=== PATIENT | female | born 1985 ===

== ENCOUNTER → 2017-12-09 09:10 | Outpatient (CLI) | payer OTHER | END | disposition home or self-care (01) | LOC: LAB 09:10 | DX: E56.8 Deficiency of other vitamins (principal) ==

== ENCOUNTER 2018-09-04 13:45 | Emergency (ER) | payer OTHER ==
[~2018-09-04] VITALS: Ht 167.6 cm; Wt 77.1 kg
== END 2018-09-04 14:59 | disposition home or self-care (01) ==
LOC: ER 13:45
DX: N30.80 Other cystitis without hematuria (principal)

== ENCOUNTER 2018-09-13 16:08 | Outpatient (CLI) | payer OTHER | END 2018-09-13 18:00 | disposition home or self-care (01) | LOC: LAB 16:08 | DX: Z34.00 Encounter for supervision of normal first pregnancy, unspecified trimester (principal) ==

== ENCOUNTER 2018-09-26 17:34 | Outpatient (CLI) | payer OTHER | END 2018-09-26 17:38 | disposition home or self-care (01) | LOC: LAB 17:34 | DX: R80.8 Other proteinuria (principal) ==

== ENCOUNTER 2018-11-07 14:06 | Outpatient (CLI) | payer OTHER | END 2018-11-07 15:42 | disposition home or self-care (01) | LOC: LAB 14:06 | DX: Z34.00 Encounter for supervision of normal first pregnancy, unspecified trimester (principal) ==

== ENCOUNTER → 2018-11-29 | Outpatient (CLI) | payer OTHER | END | disposition home or self-care (01) | LOC: SURG 09-01 10:07 → EDSTATUS 09-01 10:08 → PRENATAL 13:00 | DX: O10.012 Pre-existing essential hypertension complicating pregnancy, second trimester (principal) ==

== ENCOUNTER 2019-02-02 10:10 | Outpatient (CLI) | payer OTHER | END 2019-02-02 16:20 | disposition home or self-care (01) | LOC: LAB 10:10 | DX: Z34.00 Encounter for supervision of normal first pregnancy, unspecified trimester (principal) ==

== ENCOUNTER 2019-02-10 12:05 | Outpatient (CLI) | payer OTHER | END 2019-02-10 15:00 | disposition home or self-care (01) | LOC: LAB 12:05 | DX: O24.419 Gestational diabetes mellitus in pregnancy, unspecified control (principal) ==

== ENCOUNTER 2019-02-24 11:08 | Outpatient (CLI) | payer OTHER | END 2019-02-24 16:00 | disposition home or self-care (01) | LOC: LAB 11:08 | DX: O24.419 Gestational diabetes mellitus in pregnancy, unspecified control (principal) ==

== ENCOUNTER 2019-03-02 11:57 | Outpatient (CLI) | payer OTHER | END 2019-03-02 15:40 | disposition home or self-care (01) | LOC: LAB 11:57 | DX: Z34.00 Encounter for supervision of normal first pregnancy, unspecified trimester (principal) ==

== ENCOUNTER → 2019-03-03 | Outpatient (CLI) | payer OTHER ==
[~2019-03-03] MED LIST: LABETALOL HCL100 MG PO; PEPCID AC10 MG PO; PRENATAL TABLE1 EACH PO
== END | disposition home or self-care (01) ==
LOC: PRENATAL 11:00
DX: O10.013 Pre-existing essential hypertension complicating pregnancy, third trimester (principal); O26.843 Uterine size-date discrepancy, third trimester; O09.513 Supervision of elderly primigravida, third trimester

== ENCOUNTER 2019-03-10 11:37 | Outpatient (CLI) | payer OTHER | END 2019-03-10 15:00 | disposition home or self-care (01) | LOC: LAB 11:37 | DX: O13.9 Gestational [pregnancy-induced] hypertension without significant proteinuria, unspecified trimester (principal) ==

== ENCOUNTER 2019-03-13 12:13 | Outpatient (CLI) | payer OTHER | END 2019-03-13 15:00 | disposition home or self-care (01) | LOC: LAB 12:13 | DX: O13.9 Gestational [pregnancy-induced] hypertension without significant proteinuria, unspecified trimester (principal) ==

== ENCOUNTER 2019-03-18 10:32 | Outpatient (CLI) | payer OTHER | END 2019-03-18 10:40 | disposition home or self-care (01) | LOC: LAB 10:32 | DX: O24.419 Gestational diabetes mellitus in pregnancy, unspecified control (principal); O13.9 Gestational [pregnancy-induced] hypertension without significant proteinuria, unspecified trimester ==

== ENCOUNTER 2019-03-23 10:46 | Outpatient (CLI) | payer OTHER | END 2019-03-23 14:44 | disposition home or self-care (01) | LOC: LAB 10:46 | DX: O24.419 Gestational diabetes mellitus in pregnancy, unspecified control (principal) ==

== ENCOUNTER 2019-03-28 14:50 | Inpatient (IN) | payer OTHER ==
[~2019-03-28] VITALS: Ht 170.2 cm; Wt 2.3 kg
[2019-04-05] MEDS ORDERED: PRENATAL TABLE1 EACH PO (07:57)
[2019-04-05] MEDS ORDERED: PEPCID AC10 MG PO (08:02)
[2019-04-05] MEDS ORDERED: LABETALOL HCL100 MG PO (08:05)
== END 2019-04-08 14:00 | DRG 786 ==
LOC: O/R 04-05 06:40 → SURG-SUITE 04-05 06:40 → LDR 04-05 09:15 → OB/GYN 04-05 10:45 → SURG-SUITE 04-05 14:05
PROVIDERS: ADMIT Obstetrics & Gynecology
PROC: 4A1HXCZ Monitoring of Products of Conception, Cardiac Rate, External Approach (ICD-10-PCS; 2019-04-05)
PROC: 4A033R1 Measurement of Arterial Saturation, Peripheral, Percutaneous Approach (ICD-10-PCS; 2019-04-05)
PROC: 10D00Z1 Extraction of Products of Conception, Low, Open Approach (ICD-10-PCS; principal; 2019-04-05 09:15)
DX: O26.613 Liver and biliary tract disorders in pregnancy, third trimester (principal); K83.1 Obstruction of bile duct; O10.913 Unspecified pre-existing hypertension complicating pregnancy, third trimester; O24.410 Gestational diabetes mellitus in pregnancy, diet controlled; Z3A.37 37 weeks gestation of pregnancy; Z90.5 Acquired absence of kidney; Z37.0 Single live birth

== ENCOUNTER 2019-04-10 15:25 | Outpatient (CLI) | payer OTHER | END 2019-04-10 18:00 | disposition home or self-care (01) | LOC: LAB 15:25 | DX: R50.81 Fever presenting with conditions classified elsewhere (principal) ==

== ENCOUNTER 2019-09-27 10:33 | Emergency (ER) | payer OTHER ==
[~2019-09-27] VITALS: Ht 170.2 cm; Wt 86.2 kg
[2019-09-27] MEDS ORDERED: COZAAR50 MG PO (10:47)
== END 2019-09-27 12:07 | disposition home or self-care (01) ==
LOC: ER 10:33
DX: M54.2 Cervicalgia (principal); R51 Headache; M62.838 Other muscle spasm; Z03.818 Encounter for observation for suspected exposure to other biological agents ruled out

== ENCOUNTER → 2019-12-11 | Emergency (ER) | payer OTHER ==
[~2019-12-11] VITALS: Ht 170.2 cm; Wt 86.2 kg
[~2019-12-11] MED LIST changes: +COZAAR50 MG PO
== END | disposition home or self-care (01) ==
LOC: ER 10:22
DX: B34.9 Viral infection, unspecified (principal)

== ENCOUNTER 2019-12-14 10:04 | Outpatient (CLI) | payer OTHER | END 2019-12-14 15:00 | disposition home or self-care (01) | LOC: LAB 10:04 | DX: J02.8 Acute pharyngitis due to other specified organisms (principal) ==

== ENCOUNTER 2020-03-11 22:23 | Emergency (ER) | payer OTHER ==
[~2020-03-11] VITALS: Ht 170.2 cm; Wt 86.2 kg
== END 2020-03-11 23:29 | disposition home or self-care (01) ==
LOC: ER 22:23
DX: R05 Cough (principal); Z03.818 Encounter for observation for suspected exposure to other biological agents ruled out

== ENCOUNTER 2020-04-23 09:32 | Outpatient (CLI) | payer OTHER | END 2020-04-23 15:00 | disposition home or self-care (01) | LOC: PPH VACUNA 09:32 | DX: Z23 Encounter for immunization (principal) ==

== ENCOUNTER 2020-07-10 12:14 | Emergency (ER) | payer OTHER ==
[~2020-07-10] VITALS: Ht 157.5 cm; Wt 81.6 kg
== END 2020-07-10 13:24 | disposition home or self-care (01) ==
LOC: ER 12:14
DX: N39.0 Urinary tract infection, site not specified (principal)

== ENCOUNTER → 2020-12-13 | Emergency (ER) | payer OTHER ==
[~2020-12-13] VITALS: Ht 165.1 cm; Wt 77.1 kg
== END | disposition home or self-care (01) ==
LOC: ER 14:54
DX: U07.1 COVID-19 (principal)

== ENCOUNTER 2020-12-14 11:15 | Outpatient (CLI) | payer OTHER | END 2020-12-14 14:15 | disposition home or self-care (01) | LOC: ASH CLINIC 11:15 | PROVIDERS: ATTEND General Practice | DX: Z23 Encounter for immunization (principal); U07.1 COVID-19 ==

== ENCOUNTER 2021-03-28 08:00 | Outpatient (CLI) | payer OTHER | END 2021-03-28 08:30 | disposition home or self-care (01) | LOC: PPH VACUNA 08:00 | PROVIDERS: ATTEND Emergency Medicine Pediatric Emergency Medicine | DX: Z23 Encounter for immunization (principal) ==

== ENCOUNTER 2022-04-22 09:03 | Outpatient (CLI) | payer OTHER | END 2022-04-22 09:12 | disposition home or self-care (01) | LOC: LAB 09:03 | PROVIDERS: ATTEND Obstetrics & Gynecology | DX: Z34.81 Encounter for supervision of other normal pregnancy, first trimester (principal) ==

== ENCOUNTER 2022-05-27 12:32 | Outpatient (CLI) | payer OTHER | END 2022-05-27 13:25 | disposition home or self-care (01) | LOC: PRENATAL 12:32 | PROVIDERS: ATTEND Obstetrics & Gynecology Maternal & Fetal Medicine | DX: O36.80X0 Pregnancy with inconclusive fetal viability, not applicable or unspecified (principal); O14.90 Unspecified pre-eclampsia, unspecified trimester; O34.219 Maternal care for unspecified type scar from previous cesarean delivery; Z3A.12 12 weeks gestation of pregnancy ==

== ENCOUNTER 2022-06-24 08:29 | Outpatient (CLI) | payer OTHER | END 2022-06-24 08:38 | disposition home or self-care (01) | LOC: LAB 08:29 | PROVIDERS: ATTEND Obstetrics & Gynecology | DX: Z34.81 Encounter for supervision of other normal pregnancy, first trimester (principal) ==

== ENCOUNTER 2022-07-31 09:30 | Outpatient (CLI) | payer OTHER | END 2022-07-31 09:50 | disposition home or self-care (01) | LOC: LAB 09:30 | PROVIDERS: ATTEND Obstetrics & Gynecology | DX: O24.419 Gestational diabetes mellitus in pregnancy, unspecified control (principal) ==

== ENCOUNTER → 2022-08-21 | Outpatient (CLI) | payer OTHER | END | disposition home or self-care (01) | LOC: PRENATAL 10:38 | PROVIDERS: ATTEND Obstetrics & Gynecology Maternal & Fetal Medicine | DX: O35.9XX0 Maternal care for (suspected) fetal abnormality and damage, unspecified, not applicable or unspecified (principal); O35.3XX0 Maternal care for (suspected) damage to fetus from viral disease in mother, not applicable or unspecified; O09.529 Supervision of elderly multigravida, unspecified trimester; O34.219 Maternal care for unspecified type scar from previous cesarean delivery; O14.90 Unspecified pre-eclampsia, unspecified trimester; O10.019 Pre-existing essential hypertension complicating pregnancy, unspecified trimester; O24.419 Gestational diabetes mellitus in pregnancy, unspecified control; Z3A.24 24 weeks gestation of pregnancy ==

== ENCOUNTER 2022-09-16 14:14 | Outpatient (CLI) | payer OTHER | END 2022-09-16 15:20 | disposition home or self-care (01) | LOC: PRENATAL 14:14 | PROVIDERS: ATTEND Obstetrics & Gynecology Maternal & Fetal Medicine | DX: O26.849 Uterine size-date discrepancy, unspecified trimester (principal); O09.519 Supervision of elderly primigravida, unspecified trimester; O34.219 Maternal care for unspecified type scar from previous cesarean delivery; Z3A.28 28 weeks gestation of pregnancy ==

== ENCOUNTER 2022-09-25 12:30 | Outpatient (CLI) | payer OTHER | END 2022-09-25 13:45 | disposition home or self-care (01) | LOC: PRENATAL 12:30 | PROVIDERS: ATTEND Obstetrics & Gynecology Maternal & Fetal Medicine | DX: Z76.1 Encounter for health supervision and care of foundling (principal) ==

== ENCOUNTER 2022-10-14 10:10 | Outpatient (CLI) | payer OTHER | END 2022-10-14 12:39 | disposition home or self-care (01) | LOC: PRENATAL 10:10 | PROVIDERS: ATTEND Obstetrics & Gynecology Maternal & Fetal Medicine | DX: O26.849 Uterine size-date discrepancy, unspecified trimester (principal); O09.519 Supervision of elderly primigravida, unspecified trimester; O34.219 Maternal care for unspecified type scar from previous cesarean delivery; O10.019 Pre-existing essential hypertension complicating pregnancy, unspecified trimester; O24.419 Gestational diabetes mellitus in pregnancy, unspecified control; Z3A.32 32 weeks gestation of pregnancy ==

== ENCOUNTER 2022-10-28 07:06 | Inpatient (IN) | payer OTHER ==
[~2022-10-28] VITALS: Ht 170.2 cm; Wt 2.7 kg
[2022-10-28] MEDS ORDERED: URSO250 MG PO (09:13)
[2022-10-28] MEDS ORDERED: CHILDREN'S ASPI81 MG PO (09:14)
[2022-10-28] MEDS ORDERED: PEPCID AC20 MG PO (09:14)
[2022-10-28] MEDS ORDERED: PRENATABS RX T1 EACH PO (09:14)
== END 2022-10-31 13:27 | disposition home or self-care (01) | DRG 788 ==
LOC: LDR 07:06 → O/R 07:06 → OB/GYN 07:06 → O/R 12:47 → OB/GYN 15:50
PROVIDERS: ADMIT Obstetrics & Gynecology; ATTEND Obstetrics & Gynecology
PROC: 4A1HXCZ Monitoring of Products of Conception, Cardiac Rate, External Approach (ICD-10-PCS; 2022-10-28)
PROC: 10D00Z1 Extraction of Products of Conception, Low, Open Approach (ICD-10-PCS; principal; 2022-10-28 12:00)
DX: O60.14X0 Preterm labor third trimester with preterm delivery third trimester, not applicable or unspecified (principal); O34.211 Maternal care for low transverse scar from previous cesarean delivery; O11.4 Pre-existing hypertension with pre-eclampsia, complicating childbirth; O24.420 Gestational diabetes mellitus in childbirth, diet controlled; Z3A.34 34 weeks gestation of pregnancy; Z37.0 Single live birth; Z20.822 Contact with and (suspected) exposure to COVID-19

== ENCOUNTER 2022-11-04 15:37 | Outpatient (CLI) | payer OTHER ==
[~2022-11-04 15:37] MED LIST changes: +CHILDREN'S ASPI81 MG PO; +PEPCID AC20 MG PO; +PRENATABS RX T1 EACH PO; +URSO250 MG PO
== END 2022-11-04 15:39 | disposition home or self-care (01) ==
LOC: LAB 15:37
PROVIDERS: ATTEND General Practice
DX: K83.9 Disease of biliary tract, unspecified (principal); O26.619 Liver and biliary tract disorders in pregnancy, unspecified trimester; D62 Acute posthemorrhagic anemia; O34.219 Maternal care for unspecified type scar from previous cesarean delivery